=== PATIENT | female | born 1985 | race Caucasian/White ===

== ENCOUNTER 2020-11-28 16:36 | Outpatient (CLI) | payer OTHER, SELFPAY | END 2020-11-28 16:37 | disposition home or self-care (01) | LOC: ANHCOVIDVC 16:36 | PROVIDERS: PCP Family Medicine | DX: Z23 Encounter for immunization (principal) | CPT/HCPCS: 0001A; 91300 ==

== ENCOUNTER 2020-12-19 16:25 | Outpatient (CLI) | payer OTHER, SELFPAY | END 2020-12-19 16:26 | disposition home or self-care (01) | LOC: ANHCOVIDVC 16:26 | PROVIDERS: PCP Family Medicine | DX: Z23 Encounter for immunization (principal) | CPT/HCPCS: 0002A; 91300 ==

== ENCOUNTER 2021-02-05 17:57 | Emergency (ER) | payer OTHER, SELFPAY ==
[2021-02-05 18:09] VITALS: BP 146/89; PULSE 120; RESP 18; TEMP 36.9; O2SAT 100
--- NOTE | 2021-02-05 18:47 | ED.GENADULT ---
HPI - General Adult General Chief complaint: Upper Respiratory Infection Stated complaint: cough Source: patient Mode of arrival: ambulatory Limitations: no limitations History of Present Illness HPI narrative: 35 y/o female. PMH includes: Seasonal Allergies. Presents to [facility] clinic with acute complaints of ongoing sinus congestion, 'green' nasal discharge, bilateral ear pressure, as well as sore throat for the past 2 weeks. She reports intermittent, and non-productive cough. Denies fever, chills. No chest pain, dyspnea, wheezing. No known ill contacts. She is without additional acute complaints of illness upon exam. Related Data Home Medications Medication Instructions Recorded Confirmed levonorgestrel [Mirena] See Rx Instructions .ROUTE .COMPLEX 02/05/21 02/05/21 loratadine [Claritin] 10 mg PO DAILY 02/05/21 02/05/21 Allergies Allergy/AdvReac Type Severity Reaction Status Date / Time No Known Allergies Allergy Verified 02/05/21 18:31 Review of Systems Review of Systems: Narrative: CONSTITUTIONAL: Denies fever, chills, sweats. EYES: Denies visual changes, redness, discharge. ENT: Positive rhinorrhea, congestion, sore throat, otalgia. CARDIOVASCULAR: Denies chest pain, palpitations, edema. RESPIRATORY: Cough. Denies dyspnea, wheezing. GASTROINTESTINAL: Denies abdominal pain, nausea, vomiting, diarrhea. GENITOURINARY: Denies dysuria, hematuria, abnormal discharge SKIN: Denies rash or itching. MUSCULOSKELETAL: Denies acute back pain, joint pain, or myalgia. NEUROLOGIC: Denies numbness, or focal weakness. PSYCHIATRIC: Denies anxiety or depression. All systems reviewed & are unremarkable except as noted in HPI and below PMFSH Social History Social History Gender identity (if verbalized by the patient): Female Sexual Orientation (if Verbalized by the Patient): Straight or Heterosexual Exam Narrative: Exam Narrative: GENERAL: This is a well-nourished, well-developed patient, in no apparent distress. HEAD: normocephalic, atraumatic. EYES: PERRL. Sclera clear/white. Vision is grossly intact. EARS: External ears normal. Auditory canals are erythematous, LT > burdensome than RT. Mild TM bulging LT, without perforation. Hearing grossly intact. NOSE: External nose normal. Thick nasal discharge, PND. No obstruction. THROAT: Mucous membranes moist. Posterior pharynx erythematous, with minimal exudative changes. NECK: Neck supple, non-tender without lymphadenopathy, masses or thyromegaly. CARDIOVASCULAR: Mild tachycardia, without murmurs, gallops, or rubs. RESPIRATORY: Clear to auscultation. Breath sounds equal bilaterally. No wheezes, rales, or rhonchi. GASTROINTESTINAL: Abdomen soft, non-tender, nondistended. Bowel sounds are active. No hepato-splenomegaly, or palpable masses. No guarding. SKIN: warm, intact with no suspicious lesions or rash, good texture and turgor. NEURO: awake, alert, and oriented to person, place and time. There were no obvious focal neurologic abnormalities. Course Vital Signs Vital signs: Vital Signs Temperature 36.9 C 02/05/21 18:09 Pulse Rate 120 H 02/05/21 18:09 Respiratory Rate 18 02/05/21 18:09 Blood Pressure 146/89 H 02/05/21 18:09 Pulse Oximetry 100 02/05/21 18:09 Temperature 36.9 C 02/05/21 18:09 Pulse Rate 120 H 02/05/21 18:09 Respiratory Rate 18 02/05/21 18:09 Blood Pressure 146/89 H 02/05/21 18:09 Pulse Oximetry 100 02/05/21 18:09 The patient has been informed that they may have pre-hypertension or Hypertension based on a BP reading in the clinic. It is recommended that the patient call the primary care provider listed on their discharge instructions or a physician of their choice as soon as possible (within 1-2week) to arrange follow up for further evaluation of possible pre-hypertension or hypertension. Medical Decision Making MDM Narrative Medical decision making narrativ
== END 2021-02-05 18:53 | disposition home or self-care (01) ==
PROVIDERS: Emergency Provider Nurse Practitioner Adult Health
DX: J02.0 Streptococcal pharyngitis (principal)
CPT/HCPCS: 87880; 99213; G0463

== ENCOUNTER 2021-02-10 05:33 | Emergency (ER) | payer OTHER, SELFPAY ==
[2021-02-10 05:43] VITALS: BP 150/86; PULSE 114; RESP 20; TEMP 37.3; O2SAT 100
[2021-02-10 05:58] VITALS: PULSE 108; RESP 16
[2021-02-10] MEDS: IPRATROPIUM BR 0.02% INH SOLN 0.5 MG/2.5 ML VIAL INHALATION (05:58)
[2021-02-10] MEDS: ALBUTEROL SULFATE NEB 2.5 MG/0.5 ML INH 5 MG INHALATION (05:58)
[2021-02-10 06:02] VITALS: BP 124/88; PULSE 99; RESP 18; O2SAT 100
[2021-02-10 06:15] VITALS: PULSE 122; RESP 20
--- NOTE | 2021-02-10 06:21 | ED.GENADULT ---
HPI - General Adult General Chief complaint: Upper Respiratory Infection Stated complaint: Cough x 3weeks Time Seen by Provider: 02/10/21 05:37 History of Present Illness HPI narrative: Patient is a 35-year-old female who presents to the ER with cough. Patient reports she has had a cough for 3 weeks. She was seen at an urgent care and prescribed amoxicillin for strep throat. It is mainly at night when she lays down. She tried cough medicine without relief. She reports she does have sinus congestion still is having some postnasal drip. No productive cough. No fevers or chills or sweats. Occasionally she has posttussive emesis. She has not noticed any wheezing. Patient reports she feels very anxious about being here. No loss of taste or smell. Related Data Home Medications Medication Instructions Recorded Confirmed levonorgestrel [Mirena] See Rx Instructions .ROUTE .COMPLEX 02/05/21 02/05/21 loratadine [Claritin] 10 mg PO DAILY 02/05/21 02/05/21 Allergies Allergy/AdvReac Type Severity Reaction Status Date / Time No Known Allergies Allergy Verified 02/10/21 05:35 Review of Systems Review of Systems: All systems reviewed & are unremarkable except as noted in HPI and below Constitutional: Constitutional: Denies chills, Denies fever(s) and Denies weakness ENT: Reports nasal congestion and Reports sore throat Cardiovascular: Cardiovascular: Denies chest pain and Denies radiating jaw, neck or arm pain Respiratory: Respiratory: Denies chest congestion, Reports cough, Denies dyspnea and Denies wheezing Gastrointestinal: Gastrointestinal: Denies abdominal pain, Denies nausea and Reports vomiting PMFSH Past Medical History Medical History (Updated 02/10/21 @ 06:41 by Kolby Cruz MD) Anxiety Surgical History Surgical History (Updated 02/10/21 @ 06:23 by Kolby Cruz MD) No pertinent past surgical history Social History Social History Gender identity (if verbalized by the patient): Female Exam Narrative: Exam Narrative: GENERAL: Well-appearing, well-nourished, and in no acute distress. HEAD: Normocephalic, atraumatic. ENT: Mucous membranes moist. Normal-appearing posterior oropharynx with midline uvula that is nonedematous, normal-appearing tonsils that are slightly larger than typical without exudate or erythema. NECK: Supple. CHEST: Clear to auscultation. No respiratory distress. HEART: Tachycardic and regular. Normal peripheral pulses. EXTREMITIES: Normal range of motion. No edema. NEURO: Alert and oriented x3. PSYCH: Normal mood and affect. Course Course Emergency Course: Patijosr not concerned about her tachycardia, feels it is related to anxiety and then worsened by neb tx. Patient feels mild improvement with nebulizer treatment. Recommend supportive care for home including Flonase and sinus decongestants. Vital Signs Vital signs: Vital Signs Temperature 99.1 F 02/10/21 05:43 Pulse Rate 114 H 02/10/21 05:43 Respiratory Rate 20 02/10/21 05:43 Blood Pressure 150/86 H 02/10/21 05:43 Pulse Oximetry 100 02/10/21 05:43 Temperature 99.1 F 02/10/21 05:43 Pulse Rate 128 H 02/10/21 06:41 Respiratory Rate 20 02/10/21 06:41 Blood Pressure 111/55 L 02/10/21 06:41 Pulse Oximetry 96 02/10/21 06:41 Medical Decision Making Vital Signs Vital Signs: Vital Signs Temperature 99.1 F 02/10/21 05:43 Pulse Rate 114 H 02/10/21 05:43 Respiratory Rate 20 02/10/21 05:43 Blood Pressure 150/86 H 02/10/21 05:43 Pulse Oximetry 100 02/10/21 05:43 Temperature 99.1 F 02/10/21 05:43 Pulse Rate 128 H 02/10/21 06:41 Respiratory Rate 20 02/10/21 06:41 Blood Pressure 111/55 L 02/10/21 06:41 Pulse Oximetry 96 02/10/21 06:41 Discharge Plan Discharge Clinical Impression: Upper respiratory infection Patient Disposition: Home, Self-Care Condition: Stable Instructions: V
[2021-02-10 06:41] VITALS: BP 111/55; PULSE 128; RESP 20; O2SAT 96
[2021-02-10 06:50] VITALS: BP 111/55; PULSE 126; RESP 17; O2SAT 96
== END 2021-02-10 06:52 | disposition home or self-care (01) ==
PROVIDERS: Emergency Provider Emergency Medicine
DX: J06.9 Acute upper respiratory infection, unspecified (principal)
CPT/HCPCS: 94640; 99283

== ENCOUNTER 2021-08-27 08:41 | Emergency (ER) | payer OTHER, SELFPAY ==
[2021-08-27 08:53] VITALS: BP 120/95; PULSE 128; RESP 16; TEMP 37.3; O2SAT 99
--- NOTE | 2021-08-27 09:50 | ED.EAR ---
HPI - Ear Problem General Chief complaint: Upper Respiratory Infection Stated complaint: ear pain/sinus pressure Time Seen by Provider: 08/27/21 09:52 Source: patient Mode of arrival: ambulatory Limitations: no limitations History of Present Illness HPI Narrative: Nallely Castro is a 36-year-old female with a PMH mild anxiety who comes to [facility] with complaints of right ear pain and eustachian tube discomfort that runs toward right throat that started 3 days ago. She has no nausea vomiting diarrhea and feels like she has chills, no objective fever Related Data Home Medications Medication Instructions Recorded Confirmed levonorgestrel [Mirena] See Rx Instructions .ROUTE .COMPLEX 02/05/21 02/05/21 loratadine [Claritin] 10 mg PO DAILY 02/05/21 02/05/21 Allergies Allergy/AdvReac Type Severity Reaction Status Date / Time No Known Allergies Allergy Verified 02/10/21 05:35 Review of Systems Review of Systems: CONSTITUTIONAL: Denies fever, chills, sweats. EYES: Denies visual changes, redness, discharge. ENT: Denies rhinorrhea, congestion, mild sore throat, right otalgia. With right eustachian tube pain CARDIOVASCULAR: Denies chest pain, palpitations, edema. RESPIRATORY: Denies dyspnea, wheezing, cough GASTROINTESTINAL: Denies abdominal pain, nausea, vomiting, diarrhea. GENITOURINARY: Denies dysuria, hematuria, abnormal discharge SKIN: Denies rash or itching. NEUROLOGIC: Denies numbness, or focal weakness. PSYCHIATRIC: Denies anxiety or depression. [facility] Past Medical History Medical History Anxiety Surgical History Surgical History No pertinent past surgical history Social History Social History (Updated 08/27/21 @ 09:56 by Tiffanie Anaya CNP) Smoking status: Never smoker Alcohol intake: current Gender identity (if verbalized by the patient): Female Sexual Orientation (if Verbalized by the Patient): Straight or Heterosexual Comments At time of signature, I agree with nursing past medical, surgical, social and family history. There is no relevant family history pertinent to the presenting complaint. Blood pressure elevated due to pain at the time of the visit given follow-up physician Exam Narrative: GENERAL: This is a well-nourished, well-developed patient, in mild distress. HEAD: normocephalic, atraumatic. EYES: Sclera clear/white. Vision is grossly intact. EARS: External ears normal, auditory canal on right is erythematous with drainage TMs bulging. Hearing grossly intact. NOSE: External nose normal without nasal discharge, nares without redness, no rhinorrhea. THROAT: Mucous membranes moist, posterior pharynx erythema with edema of tonsils NECK: Neck supple, non-tender CARDIOVASCULAR: Regular rate and rhythm without murmurs, gallops, or rubs. RESPIRATORY: Clear to auscultation. Breath sounds equal bilaterally. No wheezes, rales, or rhonchi. GASTROINTESTINAL: Abdomen soft, non-tender, SKIN: warm, intact with no suspicious lesions or rash, good texture and turgor. NEURO: awake, alert, and oriented to person, place and time. There were no obvious focal neurologic abnormalities. Steady gait EXTREMITIES: Normal range of motion. BACK: Nontender without deformity Course Course Emergency Course: Patient comes with right ear pain started 3 days ago that is going down into her throat, has chills Patient started amoxicillin 875 twice daily Level of Care: Express Care Visit Vital Signs Vital signs: Vital Signs Temperature 99.2 F 08/27/21 08:53 Pulse Rate 128 H 08/27/21 08:53 Respiratory Rate 16 08/27/21 08:53 Blood Pressure 120/95 H 08/27/21 08:53 Pulse Oximetry 99 08/27/21 08:53 Temperature 99.2 F 08/27/21 08:53 Pulse Rate 128 H 08/27/21 08:53 Respiratory Rate 16 08/27/21 08:53 Blood Pressure 120/95 H 08/27/21 08:53 Pulse Oximetry 99 08/27/21 08:53
== END 2021-08-27 10:23 | disposition home or self-care (01) ==
PROVIDERS: Emergency Provider Nurse Practitioner
DX: H66.91 Otitis media, unspecified, right ear (principal); J02.9 Acute pharyngitis, unspecified; Z20.822 Contact with and (suspected) exposure to COVID-19
CPT/HCPCS: 99213; G0463

== ENCOUNTER 2021-10-03 14:06 | Emergency (ER) | payer OTHER, SELFPAY ==
[2021-10-03 14:22] VITALS: BP 142/89; PULSE 99; RESP 20; TEMP 36.8; O2SAT 98
--- NOTE | 2021-10-03 14:37 | ED.URI ---
HPI - URI/Sore Throat General Chief Complaint: Upper Respiratory Infection Stated Complaint: Sinus Time Seen by Provider: 10/03/21 14:40 Source: patient Mode of arrival: ambulatory Limitations: no limitations History of Present Illness HPI Narrative: Nallely Castro is a 36 yo female with no PMH who comes to [facility] with complaints of cough tightness coughing up green mucus and some ear and nasal congestion for the past week or so she took some leftover steroid pills and said it helped a little. She was treated for otitis and nasal congestion in August Related Data Home Medications Medication Instructions Recorded Confirmed levonorgestrel [Mirena] See Rx Instructions .ROUTE .COMPLEX 02/05/21 02/05/21 loratadine [Claritin] 10 mg PO DAILY 02/05/21 02/05/21 Allergies Allergy/AdvReac Type Severity Reaction Status Date / Time No Known Allergies Allergy Verified 02/10/21 05:35 Review of Systems Review of Systems: CONSTITUTIONAL: Denies fever, chills, sweats. EYES: Denies visual changes, redness, discharge. ENT: Denies rhinorrhea, has congestion, has sore throat, otalgia. Has congestion CARDIOVASCULAR: Denies chest pain, palpitations, edema. RESPIRATORY: Denies dyspnea, wheezing, has cough GASTROINTESTINAL: Denies abdominal pain, nausea, vomiting, diarrhea. GENITOURINARY: Denies dysuria, hematuria, abnormal discharge SKIN: Denies rash or itching. NEUROLOGIC: Denies numbness, or focal weakness. PSYCHIATRIC: Denies anxiety or depression. PMFSH Past Medical History Medical History Anxiety Surgical History Surgical History No pertinent past surgical history Social History Social History Smoking status: Never smoker Alcohol intake: current Gender identity (if verbalized by the patient): Female Sexual Orientation (if Verbalized by the Patient): Straight or Heterosexual Comments At time of signature, I agree with nursing past medical, surgical, social and family history. There is no relevant family history pertinent to the presenting complaint. Pt's BP is elevated at today's visit- given pcp listing Exam Narrative: GENERAL: This is a well-nourished, well-developed patient, in mild distress. HEAD: normocephalic, atraumatic. EYES: Sclera clear/white. Vision is grossly intact. EARS: External ears normal, auditory canals clear and with drainage, fluid behind TMs without perforation. Hearing grossly intact. NOSE: External nose normal without nasal discharge, nares without redness, has rhinorrhea. THROAT: Mucous membranes moist, posterior pharynx enlarged tonsils with erythema NECK: Neck supple, non-tender CARDIOVASCULAR: Regular rate and rhythm without murmurs, gallops, or rubs. RESPIRATORY: Clear to auscultation. Breath sounds equal bilaterally. No wheezes, rales, or rhonchi. GASTROINTESTINAL: Abdomen soft SKIN: warm, intact with no suspicious lesions or rash, good texture and turgor. NEURO: awake, alert, and oriented to person, place and time. There were no obvious focal neurologic abnormalities. Steady gait EXTREMITIES: Normal range of motion. BACK: Nontender without deformity Course Course Emergency Course: Patient here with complaints of ear fullness coughing green mucus having chest tightness with coughing particular in the morning Strep test- negative Started on polymyxin eardrops albuterol inhaler Flonase Lou Osullivan Level of Care: Express Care Visit Vital Signs Vital signs: Vital Signs Temperature 98.2 F 10/03/21 14:22 Pulse Rate 99 10/03/21 14:22 Respiratory Rate 20 10/03/21 14:22 Blood Pressure 142/89 H 10/03/21 14:22 Pulse Oximetry 98 10/03/21 14:22 Temperature 98.2 F 10/03/21 14:22 Pulse Rate 99 10/03/21 14:22 Respiratory Rate 20 10/03/21 14:22 Blood Pressure 142/89 H 10/03/21 14:22
== END 2021-10-03 15:04 | disposition home or self-care (01) ==
PROVIDERS: Emergency Provider Nurse Practitioner
DX: J06.9 Acute upper respiratory infection, unspecified (principal)
CPT/HCPCS: 87081; 87880; 99213; G0463